=== PATIENT | female | born 1955 | race Caucasian/White ===

== ENCOUNTER 2022-03-23 06:00 | Outpatient (RCR) | payer OTHER, SELFPAY | END 2022-03-30 23:59 | disposition home or self-care (01) | LOC: GPT 06:00 | PROVIDERS: PCP Family Medicine; Visit Provider Orthopaedic Surgery | DX: M17.11 Unilateral primary osteoarthritis, right knee (principal); M71.21 Synovial cyst of popliteal space [Baker], right knee | CPT/HCPCS: 97110; 97140; 97161 ==

== ENCOUNTER 2022-03-31 06:00 | Outpatient (RCR) | payer OTHER, SELFPAY | END 2022-04-27 23:59 | disposition home or self-care (01) | LOC: GPT 06:00 | PROVIDERS: PCP Family Medicine; Visit Provider Orthopaedic Surgery | DX: M17.11 Unilateral primary osteoarthritis, right knee (principal); M71.21 Synovial cyst of popliteal space [Baker], right knee | CPT/HCPCS: 97110; 97112; 97140; 97530 ==

== ENCOUNTER 2022-07-08 06:00 | Outpatient (RCR) | payer OTHER, SELFPAY | END 2022-07-28 23:59 | disposition home or self-care (01) | LOC: GPT 06:00 | PROVIDERS: Visit Provider Orthopaedic Surgery | DX: Z47.89 Encounter for other orthopedic aftercare (principal) | CPT/HCPCS: 97110; 97140; 97161; 97530 ==

== ENCOUNTER 2022-07-29 06:00 | Outpatient (RCR) | payer OTHER, SELFPAY | END 2022-08-27 23:59 | disposition home or self-care (01) | LOC: GPT 06:00 | PROVIDERS: Visit Provider Orthopaedic Surgery | DX: Z47.89 Encounter for other orthopedic aftercare (principal) | CPT/HCPCS: 97110; 97140 ==

== ENCOUNTER 2023-05-11 11:00 | Outpatient (CLI) | payer OTHER, SELFPAY | END 2023-05-11 11:01 | disposition home or self-care (01) | LOC: SLEEP 05-12 11:40 | PROVIDERS: Visit Provider Nurse Practitioner | DX: G47.33 Obstructive sleep apnea (adult) (pediatric) (principal) | CPT/HCPCS: G0399 ==

== ENCOUNTER 2024-05-29 06:00 | Outpatient (RCR) | payer MEDICARE, SELFPAY | END 2024-06-27 23:59 | disposition home or self-care (01) | LOC: GPT 06:00 | PROVIDERS: Visit Provider Orthopaedic Surgery | DX: Z98.890 Other specified postprocedural states (principal) | CPT/HCPCS: 97110; 97112; 97161; 97530 ==

== ENCOUNTER 2024-06-28 05:00 | Outpatient (RCR) | payer MEDICARE, SELFPAY | END 2024-07-28 23:55 | disposition home or self-care (01) | LOC: GPT 05:00 | PROVIDERS: Visit Provider Orthopaedic Surgery | DX: Z98.890 Other specified postprocedural states (principal) | CPT/HCPCS: 97110; 97530 ==

== ENCOUNTER 2024-07-29 05:00 | Outpatient (RCR) | payer MEDICARE, SELFPAY | END 2024-08-27 23:59 | disposition home or self-care (01) | LOC: GPT 05:00 | PROVIDERS: Visit Provider Orthopaedic Surgery | DX: Z98.890 Other specified postprocedural states (principal) | CPT/HCPCS: 97110; 97140; 97164; 97530 ==

== ENCOUNTER 2024-08-28 05:00 | Outpatient (RCR) | payer MEDICARE, SELFPAY | END 2024-09-27 23:59 | disposition home or self-care (01) | LOC: GPT 05:00 | PROVIDERS: Visit Provider Orthopaedic Surgery | DX: Z98.890 Other specified postprocedural states (principal) | CPT/HCPCS: 97110 ==

== ENCOUNTER 2024-10-29 06:30 | Outpatient (RCR) | payer MEDICARE, SELFPAY | END 2024-11-27 23:59 | disposition home or self-care (01) | LOC: GPT 06:30 | PROVIDERS: Visit Provider Registered Nurse | DX: M80.88XD Other osteoporosis with current pathological fracture, vertebra(e), subsequent encounter for fracture with routine healing (principal) | CPT/HCPCS: 97161 ==

== ENCOUNTER 2024-12-26 11:10 | Outpatient (RCR) | payer MEDICARE, SELFPAY | END 2024-12-28 23:59 | disposition home or self-care (01) | LOC: GPT 11:10 | PROVIDERS: Visit Provider Registered Nurse | DX: M80.88XD Other osteoporosis with current pathological fracture, vertebra(e), subsequent encounter for fracture with routine healing (principal) | CPT/HCPCS: 97110; 97112; 97140 ==

== ENCOUNTER 2025-01-17 10:49 | Outpatient (RCR) | payer MEDICARE, SELFPAY | END 2025-01-27 23:59 | disposition home or self-care (01) | LOC: GPT 10:49 | PROVIDERS: Visit Provider Registered Nurse | DX: M80.88XD Other osteoporosis with current pathological fracture, vertebra(e), subsequent encounter for fracture with routine healing (principal) | CPT/HCPCS: 97110; 97112; 97140 ==